=== PATIENT | female | born 1955 | race Caucasian/White ===

== ENCOUNTER 2017-04-05 10:08 | Outpatient (CLI) | payer OTHER | END 2017-04-05 10:14 | disposition home or self-care (01) | LOC: SONOGRAMA 10:08 | DX: I10 Essential (primary) hypertension (principal); M54.5 Low back pain; E66.8 Other obesity; G62.89 Other specified polyneuropathies; J40 Bronchitis, not specified as acute or chronic; E03.8 Other specified hypothyroidism ==

== ENCOUNTER → 2017-04-05 | Outpatient (CLI) | payer OTHER ==
[~2017-04-05] MED LIST: AMOX1TAB12 PO; CALTRATE 600600 MG; CRESTOR10 MG; HYZAAR 50-12.1 UDTAB; KETO10TA2 PO; ORPH100T PO; ROCEPHIN1 G/VIAL IJ; TOPROL XL50 MG; ZYRTEC10 MG PO
== END | disposition home or self-care (01) ==
LOC: RAD 09:29
DX: I50.9 Heart failure, unspecified (principal)

== ENCOUNTER 2017-05-22 11:18 | Outpatient (CLI) | payer OTHER | END 2017-05-22 11:27 | disposition home or self-care (01) | LOC: RAD 501 11:18 | DX: I10 Essential (primary) hypertension (principal); M54.5 Low back pain; E66.8 Other obesity; G62.9 Polyneuropathy, unspecified; J40 Bronchitis, not specified as acute or chronic; E03.9 Hypothyroidism, unspecified; J45.20 Mild intermittent asthma, uncomplicated; G47.37 Central sleep apnea in conditions classified elsewhere; G47.33 Obstructive sleep apnea (adult) (pediatric); E66.01 Morbid (severe) obesity due to excess calories ==

== ENCOUNTER 2017-10-04 10:47 | Outpatient (CLI) | payer OTHER | END 2017-10-04 10:54 | disposition home or self-care (01) | LOC: RAD 501 10:47 | DX: M54.5 Low back pain (principal); E66.8 Other obesity; G62.89 Other specified polyneuropathies; E03.8 Other specified hypothyroidism; J45.20 Mild intermittent asthma, uncomplicated; G47.37 Central sleep apnea in conditions classified elsewhere; G47.33 Obstructive sleep apnea (adult) (pediatric); E66.01 Morbid (severe) obesity due to excess calories; K57.81 Diverticulitis of intestine, part unspecified, with perforation and abscess with bleeding; K57.20 Diverticulitis of large intestine with perforation and abscess without bleeding; J45.31 Mild persistent asthma with (acute) exacerbation ==

== ENCOUNTER 2017-10-24 09:10 | Outpatient (CLI) | payer OTHER | END 2017-10-24 09:19 | disposition home or self-care (01) | LOC: SONOGRAMA 09:10 | DX: E04.1 Nontoxic single thyroid nodule (principal) ==

== ENCOUNTER 2017-10-27 19:29 | Inpatient (IN) | payer OTHER ==
[~2017-10-27] VITALS: Ht 160 cm; Wt 99.8 kg
== END 2017-11-03 13:56 | disposition home health service (06) | DRG 378 ==
LOC: ER 19:29 → MEDJ 10-28 09:16
PROC: 02H633Z Insertion of Infusion Device into Right Atrium, Percutaneous Approach (ICD-10-PCS; principal; 2017-10-28)
PROC: 3E0436Z Introduction of Nutritional Substance into Central Vein, Percutaneous Approach (ICD-10-PCS; 2017-10-29)
PROC: BW25Y0Z Computerized Tomography (CT Scan) of Chest, Abdomen and Pelvis using Other Contrast, Unenhanced and Enhanced (ICD-10-PCS; 2017-10-31)
DX: K57.21 Diverticulitis of large intestine with perforation and abscess with bleeding (principal); I11.9 Hypertensive heart disease without heart failure; E03.8 Other specified hypothyroidism

== ENCOUNTER 2017-11-05 06:25 | Emergency (ER) | payer OTHER ==
[~2017-11-05] VITALS: Ht 160 cm; Wt 99.8 kg
[2017-11-05] MEDS ORDERED: SYNTHROID50 MCG (07:05)
[2017-11-05] MEDS ORDERED: ELIQUIS5 MG (07:06)
== END 2017-11-05 09:38 | disposition home or self-care (01) ==
LOC: ER 06:25
DX: I10 Essential (primary) hypertension (principal)

== ENCOUNTER 2017-11-20 09:48 | Outpatient (CLI) | payer OTHER ==
[~2017-11-20 09:48] MED LIST changes: +ELIQUIS5 MG; +SYNTHROID50 MCG
== END 2017-11-20 10:00 | disposition home or self-care (01) ==
LOC: RAD 09:48
DX: C73 Malignant neoplasm of thyroid gland (principal); I10 Essential (primary) hypertension; I48.91 Unspecified atrial fibrillation

== ENCOUNTER 2017-11-28 08:15 | Inpatient (IN) | payer OTHER ==
[~2017-11-28] VITALS: Ht 160 cm; Wt 97.5 kg
[2017-11-28] MEDS ORDERED: NORVASC5 MG PO (09:58)
== END 2017-12-07 08:41 | disposition home or self-care (01) | DRG 627 ==
LOC: O/R 12-05 05:00 → SURH 12-05 07:00
PROVIDERS: Specialist
PROC: 3E0F7GC Introduction of Other Therapeutic Substance into Respiratory Tract, Via Natural or Artificial Opening (ICD-10-PCS; 2017-12-05)
PROC: 0GTK0ZZ Resection of Thyroid Gland, Open Approach (ICD-10-PCS; principal; 2017-12-05 07:00)
DX: C73 Malignant neoplasm of thyroid gland (principal); R05 Cough; E83.51 Hypocalcemia

== ENCOUNTER → 2017-12-11 06:15 | Outpatient (CLI) | payer OTHER ==
[~2017-12-11 06:15] MED LIST changes: +NORVASC5 MG PO
== END | disposition home or self-care (01) ==
LOC: LAB 06:15
DX: C73 Malignant neoplasm of thyroid gland (principal)

== ENCOUNTER → 2018-01-15 07:26 | Outpatient (CLI) | payer OTHER | END | disposition home or self-care (01) | LOC: LAB 07:26 | DX: C73 Malignant neoplasm of thyroid gland (principal); E89.0 Postprocedural hypothyroidism ==

== ENCOUNTER 2018-01-18 13:14 | Outpatient (CLI) | payer OTHER | END 2018-01-18 14:36 | disposition home or self-care (01) | LOC: NUCLEAR 13:14 | DX: C73 Malignant neoplasm of thyroid gland (principal) | CPT/HCPCS: 79005; A9517 ==

== ENCOUNTER 2018-01-22 15:21 | Outpatient (CLI) | payer OTHER | END 2018-01-22 15:33 | disposition home or self-care (01) | LOC: NUCLEAR 15:21 | DX: C73 Malignant neoplasm of thyroid gland (principal) ==

== ENCOUNTER 2018-06-22 08:35 | Emergency (ER) | payer OTHER ==
[~2018-06-22] VITALS: Ht 160 cm; Wt 97.1 kg
== END 2018-06-22 11:50 | disposition home or self-care (01) ==
LOC: ER 08:35
DX: M25.562 Pain in left knee (principal)

== ENCOUNTER 2018-12-14 12:55 | Outpatient (CLI) | payer OTHER | END 2018-12-14 13:20 | disposition home or self-care (01) | LOC: NUCLEAR 12:55 | DX: C73 Malignant neoplasm of thyroid gland (principal); E89.0 Postprocedural hypothyroidism | CPT/HCPCS: 78018; 78020; A9548 ==

== ENCOUNTER 2019-02-07 11:23 | Outpatient (CLI) | payer OTHER | END 2019-02-07 11:25 | disposition home or self-care (01) | LOC: RAD 11:23 | DX: E66.01 Morbid (severe) obesity due to excess calories (principal); C73 Malignant neoplasm of thyroid gland; I11.9 Hypertensive heart disease without heart failure; E03.8 Other specified hypothyroidism; G62.89 Other specified polyneuropathies; E66.8 Other obesity; M54.14 Radiculopathy, thoracic region; E78.89 Other lipoprotein metabolism disorders; J09.X2 Influenza due to identified novel influenza A virus with other respiratory manifestations; E11.42 Type 2 diabetes mellitus with diabetic polyneuropathy; E11.65 Type 2 diabetes mellitus with hyperglycemia ==

== ENCOUNTER 2019-02-15 09:47 | Outpatient (CLI) | payer OTHER | END 2019-02-15 11:30 | disposition home or self-care (01) | LOC: NUCLEAR 09:47 | DX: M81.0 Age-related osteoporosis without current pathological fracture (principal); M54.14 Radiculopathy, thoracic region; G62.9 Polyneuropathy, unspecified ==

== ENCOUNTER 2019-09-04 08:29 | Outpatient (CLI) | payer OTHER | END 2019-09-04 08:39 | disposition home or self-care (01) | LOC: MAMO-SONO 08:29 | PROVIDERS: ATTEND Specialist | DX: R92.8 Other abnormal and inconclusive findings on diagnostic imaging of breast (principal) ==

== ENCOUNTER → 2020-01-04 07:52 | Outpatient (CLI) | payer OTHER | END | disposition home or self-care (01) | LOC: LAB 07:52 | PROVIDERS: ATTEND Internal Medicine Sports Medicine | DX: C73 Malignant neoplasm of thyroid gland (principal); E89.0 Postprocedural hypothyroidism ==

== ENCOUNTER 2020-07-30 08:52 | Emergency (ER) | payer OTHER ==
[~2020-07-30] VITALS: Ht 160 cm; Wt 91.6 kg
[2020-07-30] MEDS ORDERED: ALENDRONATE SOD70 MG PO (09:16)
[2020-07-30] MEDS ORDERED: CALCIUM500 M1 PO (09:16)
== END 2020-07-30 10:09 | disposition home or self-care (01) ==
LOC: ER 08:52
DX: S61.541A Puncture wound with foreign body of right wrist, initial encounter (principal); W26.8XXA Contact with other sharp object(s), not elsewhere classified, initial encounter; Y93.89 Activity, other specified; Y92.018 Other place in single-family (private) house as the place of occurrence of the external cause; Y99.8 Other external cause status

== ENCOUNTER 2021-11-17 07:20 | Outpatient (CLI) | payer OTHER ==
[~2021-11-17 07:20] MED LIST changes: +ALENDRONATE SOD70 MG PO; +CALCIUM500 M1 PO
== END 2021-11-17 07:22 | disposition home or self-care (01) ==
LOC: TOM 07:20
PROVIDERS: ATTEND Internal Medicine
DX: K57.30 Diverticulosis of large intestine without perforation or abscess without bleeding (principal); K59.01 Slow transit constipation; K51.811 Other ulcerative colitis with rectal bleeding; E66.01 Morbid (severe) obesity due to excess calories; N81.6 Rectocele; N81.10 Cystocele, unspecified; Z86.010 Personal history of colon polyps
CPT/HCPCS: 74160; Q9965

== ENCOUNTER 2022-08-02 07:00 | Emergency (ER) | payer OTHER ==
[~2022-08-02] VITALS: Ht 160 cm; Wt 86.2 kg
[2022-08-02] MEDS ORDERED: METFORMIN HCL500 M4 PO (07:26)
[2022-08-02] MEDS ORDERED: VITAMIN D310 MC4 PO (07:27)
== END 2022-08-02 16:24 | disposition home or self-care (01) ==
LOC: ER 07:00
DX: R10.84 Generalized abdominal pain (principal); K62.89 Other specified diseases of anus and rectum; N20.0 Calculus of kidney; K57.30 Diverticulosis of large intestine without perforation or abscess without bleeding

== ENCOUNTER 2022-08-10 10:56 | Outpatient (CLI) | payer OTHER ==
[~2022-08-10 10:56] MED LIST changes: +METFORMIN HCL500 M4 PO; +VITAMIN D310 MC4 PO
== END 2022-08-10 11:05 | disposition home or self-care (01) ==
LOC: SONOGRAMA 10:56
PROVIDERS: ATTEND Internal Medicine Cardiovascular Disease
DX: K62.81 Anal sphincter tear (healed) (nontraumatic) (old) (principal)

== ENCOUNTER 2022-08-24 08:59 | Outpatient (CLI) | payer OTHER | END 2022-08-24 09:05 | disposition home or self-care (01) | LOC: SONOGRAMA 08:59 | PROVIDERS: ATTEND Internal Medicine Cardiovascular Disease | DX: M79.81 Nontraumatic hematoma of soft tissue (principal) ==

== ENCOUNTER → 2024-02-08 | Outpatient (CLI) | payer OTHER | END | disposition home or self-care (01) | LOC: RAD 10:22 | PROVIDERS: ATTEND Orthopaedic Surgery | DX: Z76.89 Persons encountering health services in other specified circumstances (principal); M17.0 Bilateral primary osteoarthritis of knee; M21.161 Varus deformity, not elsewhere classified, right knee; M21.162 Varus deformity, not elsewhere classified, left knee; M25.551 Pain in right hip; M25.552 Pain in left hip ==

== ENCOUNTER 2024-03-07 11:03 | Outpatient (CLI) | payer OTHER | END 2024-03-07 11:08 | disposition home or self-care (01) | LOC: RAD 11:03 | PROVIDERS: ATTEND Orthopaedic Surgery | DX: M25.572 Pain in left ankle and joints of left foot (principal) ==

== ENCOUNTER 2024-03-11 08:23 | Outpatient (CLI) | payer OTHER | END 2024-03-11 08:25 | disposition home or self-care (01) | LOC: NUCLEAR 08:23 | PROVIDERS: ATTEND Orthopaedic Surgery | DX: I87.2 Venous insufficiency (chronic) (peripheral) (principal) ==

== ENCOUNTER 2024-03-22 08:15 | Outpatient (CLI) | payer OTHER ==
[2024-03-22 08:48] LABS: HEMOGLOBIN 13.4 g/dL (12.0-15.00); MEAN CELL VOLUME 89.4 fL (80.00-100.00); MEAN CORPUSCULAR HEMOGLOBIN 30.8 pg (27.00-32.0); MEAN CORPUSCULAR HGB CONC 34.5 g/dl (32.0-36.0); PLATELET COUNT 335 K/uL (150-450); RED BLOOD COUNT 4.36 M/uL (4.00-6.00); RED CELL DISTRIBUTION WIDTH 13.7 % (11.5-14.5)
[2024-03-22 09:15] LABS: INR 1.04; PARTIAL THROMBOPLASTIN TIME 30.6 SECONDS (22.0-34.0); PROTHROMBIN TIME 11.3 SECONDS (9.0-11.5)
[2024-03-22 09:29] LABS: ALBUMIN 3.5 gm/dL (3.4-5.0); BILIRUBIN TOTAL 0.66 mg/dL (0.3-1.2); CALCIUM 9.1 mg/dL (8.5-10.1); CREATININE SERUM 0.62 mg/dL (0.55-1.02); GFR 95.16; GLOBULINA 3.9 G/DL (2.4-3.5); POTASSIUM 3.93 mEq/L (3.5-5.1); TOTAL PROTEIN 7.4 gm/dL (6.4-8.2)
[2024-03-22 10:34] LABS: URINE APPEARANCE Clear; URINE BILIRRUBIN Negative (NEGATIVE); URINE BLOOD Negative; URINE COLOR Yellow; URINE GLUCOSE Negative (NEGATIVE); URINE KETONE Negative (NEGATIVE); URINE LEUKOCYTE Negative; URINE NITRATE Negative; URINE PROTEIN Trace (NEGATIVE); URINE UROBILINOGEN 0.2 E.U./dl
[2024-03-22 10:37] LABS: URINE BACTERIA 34.2 uL (0.0-1933); URINE RBC 12.3 uL (0.0-20.8); URINE WBC 16.9 uL (0.0-23.2)
== END 2024-03-22 08:21 | disposition home or self-care (01) ==
LOC: RAD 08:15
PROVIDERS: ATTEND Orthopaedic Surgery
DX: D64.9 Anemia, unspecified (principal); E88.89 Other specified metabolic disorders; D68.8 Other specified coagulation defects; N39.0 Urinary tract infection, site not specified; Z22.322 Carrier or suspected carrier of Methicillin resistant Staphylococcus aureus; E11.9 Type 2 diabetes mellitus without complications; Z76.89 Persons encountering health services in other specified circumstances

== ENCOUNTER 2024-04-03 10:38 | Inpatient (IN) | payer OTHER ==
[~2024-04-03] VITALS: Ht 91.4 cm; Wt 84.8 kg
[2024-04-03] MEDS ORDERED: IRBESARTAN150 MG PO (11:26)
[2024-04-08] MEDS ORDERED: BUPIVACAINE HCL/MPF 0.5% 30ML VIAL ONE (13:36)
[2024-04-08] MEDS ORDERED: KETOROLAC TROMETHAMINE 60 MG VIAL IM ONE (13:36)
[2024-04-08] MEDS ORDERED: VANCOMYCIN HCL 1,000 MG VIAL ONE (13:37)
[2024-04-08] MEDS ORDERED: POLYMYXIN B SULFATE 500,000 U VIAL ONE (13:37)
[2024-04-08] MEDS ORDERED: CEFAZOLIN SODIUM 1,000 MG VIAL ONE (13:38)
[2024-04-08] MEDS ORDERED: ISOPROPYL ALCOHOL 30 ML OUNCE TOP ONE (13:38)
[2024-04-08] MEDS ORDERED: TRANEXAMIC ACID 100MG/1ML (1000MG) AMPUL IV ONE (13:39)
[2024-04-08] MEDS ORDERED: LIDOCAINE HCL 1%/EPINEPHRINE 20ML VIAL IJ ONE (13:40)
[2024-04-08] MEDS ORDERED: CEFAZOLIN SODIUM 1,000 MG VIAL IV SCH ×2 (15:45→18:56)
[2024-04-08] MEDS ORDERED: ISOPROPYL ALCOHOL 30 ML OUNCE TOP SCH (15:45)
[2024-04-08] MEDS ORDERED: VANCOMYCIN HCL 1,000 MG VIAL IR SCH (15:45)
[2024-04-08] MEDS ORDERED: BUPIVACAINE HCL 30 ML VIAL IJ SCH (15:45)
[2024-04-08] MEDS ORDERED: KETOROLAC TROMETHAMINE 60 MG VIAL IM SCH (15:45)
[2024-04-08] MEDS ORDERED: POLYMYXIN B SULFATE 500,000 U VIAL IR SCH (15:45)
[2024-04-08] MEDS ORDERED: TRANEXAMIC ACID 100MG/1ML (1000MG) AMPUL IV SCH ×2 (15:45)
[2024-04-08] MEDS ORDERED: MORPHINE SULFATE 4 MG/ML CARTRIDGE IV SCH (15:45)
[2024-04-08] MEDS ORDERED: LIDOCAINE HCL 1% 10ML VIAL IJ SCH (15:45)
[2024-04-08] MEDS ORDERED: BUPIVACAINE HCL/Mpf 0.5% 10ML VIAL ONE ×2 (18:09→18:10)
[2024-04-08] MEDS ORDERED: BUPIVACAINE HCL/PF 0.25% 30ML VIAL InF SCH (18:15)
[2024-04-08] MEDS ORDERED: ONDANSETRON HCL 2 MG/ML VIAL IV PRN (19:00)
[2024-04-08] MEDS ORDERED: PROMETHAZINE HCL 50 MG/ML AMPUL IM PRN (19:00)
[2024-04-08] MEDS ORDERED: SODIUM CHLORIDE 0.45 % 1,000 ML IV SCH (19:00)
[2024-04-08] MEDS ORDERED: TRAMADOL HCL 50 MG TABLET PO PRN (19:00)
[2024-04-08] MEDS ORDERED: ONDANSETRON 4 MG TAB.RAPDIS PO PRN (19:00)
[2024-04-08] MEDS ORDERED: MEPERIDINE HCL/PF 50 MG/ML VIAL IM PRN (19:00)
[2024-04-08] MEDS ORDERED: MORPHINE SULFATE 4 MG/ML VIAL IV ONE (20:05)
[2024-04-08 20:45] VITALS: BP 102/57; O2SAT 98
[2024-04-08] MEDS ORDERED: ACETAMINOPHEN 325 MG TABLET PO SCH (21:00)
[2024-04-08] MEDS ORDERED: CELECOXIB 200 MG CAPSULE PO SCH (21:00)
[2024-04-09] VITALS: BP 94/62; O2SAT 92
[2024-04-09] MEDS ORDERED: KETOROLAC TROMETHAMINE 10 MG TABLET PO SCH (01:00)
[2024-04-09 07:46] LABS: HEMATOCRIT 29.7 % (36.0-45.00); HEMOGLOBIN 10.5 g/dL (12.0-15.00); MEAN CELL VOLUME 89.1 fL (80.00-100.00); MEAN CORPUSCULAR HEMOGLOBIN 31.4 pg (27.00-32.0); MEAN CORPUSCULAR HGB CONC 35.2 g/dl (32.0-36.0); PLATELET COUNT 254 K/uL (150-450); RED BLOOD COUNT 3.34 M/uL (4.00-6.00)
[2024-04-09] MEDS ORDERED: DEXTROSE 50 % IN WATER 0.5 G/ML DISP.SYRIN IV PRN (08:00)
[2024-04-09] MEDS ORDERED: INSULIN LISPRO 1,000 UNIT/10 ML UNITS SUBCUTANEO PRN (08:00)
[2024-04-09 08:31] VITALS: BP 108/67; O2SAT 98
[2024-04-09] MEDS ORDERED: PANTOPRAZOLE SODIUM 40 MG TABLET.DR PO SCH (09:00)
[2024-04-09] MEDS ORDERED: APIXABAN 2.5 MG TABLET PO SCH (09:00)
[2024-04-09] MEDS ORDERED: IRON FUM,PS/FOLIC/BCOMP,C NO.9 1 CAP CAPSULE PO SCH (11:06)
[2024-04-09 19:26] VITALS: BP 116/76; O2SAT 97
[2024-04-10 00:17] VITALS: BP 102/53; O2SAT 100
[2024-04-10 07:59] LABS: HEMOGLOBIN 10.9 g/dL (12.0-15.00); MEAN CELL VOLUME 89.3 fL (80.00-100.00); MEAN CORPUSCULAR HEMOGLOBIN 31.3 pg (27.00-32.0); PLATELET COUNT 261 K/uL (150-450); RED BLOOD COUNT 3.47 M/uL (4.00-6.00); RED CELL DISTRIBUTION WIDTH 13.9 % (11.5-14.5)
[2024-04-10] MEDS ORDERED: APIXABAN 5 MG TABLET PO SCH (09:00)
[2024-04-10] MEDS ORDERED: IRBESARTAN 150 MG TABLET PO SCH (09:00)
[2024-04-10] MEDS ORDERED: SENNA/DOCUSATE SODIUM 1 TAB TABLET PO SCH (09:00)
[2024-04-10 15:30] VITALS: BP 130/73; O2SAT 97
[2024-04-10] MEDS ORDERED: AMLODIPINE BESYLATE 5 MG TABLET PO SCH (21:00)
[2024-04-11] MEDS ORDERED: LEVOTHYROXINE SODIUM 137 MCG TABLET PO SCH (06:00)
== END 2024-04-10 18:04 | DRG 470 ==
LOC: SURH 04-08 07:00 → O/R 04-08 10:38 → SURH 04-08 10:45 → SURG 04-08 19:09
PROVIDERS: ADMIT Orthopaedic Surgery; ATTEND Orthopaedic Surgery
PROC: 0SRD0J9 Replacement of Left Knee Joint with Synthetic Substitute, Cemented, Open Approach (ICD-10-PCS; principal; 2024-04-08 07:00)
DX: M17.12 Unilateral primary osteoarthritis, left knee (principal)

== ENCOUNTER 2024-05-08 09:20 | Outpatient (CLI) | payer OTHER ==
[~2024-05-08 09:20] MED LIST changes: +IRBESARTAN150 MG PO
== END 2024-05-08 09:34 | disposition home or self-care (01) ==
LOC: RAD 09:20
PROVIDERS: ATTEND Internal Medicine Pulmonary Disease
DX: R07.9 Chest pain, unspecified (principal); R05.3 Chronic cough

== ENCOUNTER 2024-05-28 08:53 | Outpatient (CLI) | payer OTHER | END 2024-05-28 08:55 | disposition home or self-care (01) | LOC: MRI 08:53 | PROVIDERS: ATTEND Orthopaedic Surgery | DX: M76.62 Achilles tendinitis, left leg (principal) | CPT/HCPCS: 73721 ==

== ENCOUNTER 2024-08-14 12:11 | Outpatient (CLI) | payer OTHER | END 2024-08-14 12:13 | disposition home or self-care (01) | LOC: RAD 12:11 | PROVIDERS: ATTEND Orthopaedic Surgery | DX: S90.31XA Contusion of right foot, initial encounter (principal) ==

== ENCOUNTER 2025-01-08 08:17 | Emergency (ER) | payer OTHER ==
[~2025-01-08] VITALS: Ht 160 cm; Wt 85.7 kg
[2025-01-08] MEDS ORDERED: KETOROLAC TROMETHAMINE 30 MG VIAL IM ONE (09:00)
[2025-01-08] MEDS ORDERED: ACETAMINOPHEN 500 MG GEL..CAP PO ONE (09:00)
[2025-01-08] MEDS ORDERED: KETOROLAC TROMETHAMINE 30 MG VIAL ONE (09:03)
== END 2025-01-08 09:21 | disposition home or self-care (01) ==
LOC: ER 08:17
DX: M54.50 Low back pain, unspecified (principal); I10 Essential (primary) hypertension; E03.8 Other specified hypothyroidism; E11.9 Type 2 diabetes mellitus without complications; Z79.84 Long term (current) use of oral hypoglycemic drugs
CPT/HCPCS: 96372; 99282; J1885

== ENCOUNTER 2025-02-07 12:40 | Outpatient (CLI) | payer OTHER | END 2025-02-07 12:43 | disposition home or self-care (01) | LOC: RAD 12:40 | PROVIDERS: ATTEND Orthopaedic Surgery | DX: M20.5X1 Other deformities of toe(s) (acquired), right foot (principal); M20.5X2 Other deformities of toe(s) (acquired), left foot ==

== ENCOUNTER → 2025-02-14 10:10 | Outpatient (CLI) | payer OTHER | END | disposition home or self-care (01) | LOC: NUCLEAR 02-12 10:00 | PROVIDERS: ATTEND Orthopaedic Surgery | DX: I87.2 Venous insufficiency (chronic) (peripheral) (principal) ==